=== PATIENT | female | born 1990 | race Hispanic/Latino ===

== ENCOUNTER 2024-06-14 11:04 | Emergency (ER) | payer OTHER ==
[~2024-06-14] VITALS: Ht 165.1 cm; Wt 55.2 kg
--- OUTSIDE RECORDS SUMMARY | 2024-06-14 11:12 | XMS ---
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 Current PHONE: Unknown Alejandra has no Care Guidelines for this patient. Boris VISIT COUNT (12 MO.) 2 EBENEZER [facility] TOTAL 2 NOTE: Visits indicate total known visits. ED/UCC VISIT TRACKING (12 MO.) 06/14/2024 11:05 [facility] [place] TYPE: Emergency COMPLAINT: - COUGH 04/01/2024 11:45 [facility] [place] TYPE: Emergency COMPLAINT: - ABDOMINAL PAIN INPATIENT VISIT TRACKING (12 MO.) No inpatient visits to display in this time frame [id number]
[2024-06-14] MEDS ORDERED: OMEPRAZOLE40 MG PO (12:10)
[2024-06-14] MEDS ORDERED: LEVOTHYROXINE137 MCG PO (12:10)
[2024-06-14] MEDS ORDERED: ZITHROMAX250 MG PO (14:27)
[2024-06-14] MEDS ORDERED: AZITHROMYCIN 250 MG TAB PO ONE (14:30)
[2024-06-14 14:46] VITALS: BP 105/67
== END 2024-06-14 14:52 | disposition home or self-care (01) ==
LOC: ED 11:04
DX: J18.9 Pneumonia, unspecified organism (principal)
CPT/HCPCS: 71045; 99283-25

== ENCOUNTER 2024-06-25 09:40 | Emergency (ER) | payer OTHER ==
[~2024-06-25] VITALS: Ht 165.1 cm; Wt 52.9 kg
[~2024-06-25 09:40] MED LIST: LEVOTHYROXINE137 MCG PO; OMEPRAZOLE40 MG PO; ZITHROMAX250 MG PO
--- OUTSIDE RECORDS SUMMARY | 2024-06-25 09:46 | XMS ---
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 Boris VISIT COUNT (12 MO.) 3 EBENEZER Chun TOTAL 3 NOTE: Visits indicate total known visits. ED/UCC VISIT TRACKING (12 MO.) 06/25/2024 09:40 [facility] [place] TYPE: Emergency COMPLAINT: - COUGH 06/14/2024 11:05 [facility] [place] TYPE: Emergency COMPLAINT: - COUGH DIAGNOSES: - Cough, unspecified - Pneumonia, unspecified organism 04/01/2024 11:45 [facility] [place] TYPE: Emergency COMPLAINT: - ABDOMINAL PAIN INPATIENT VISIT TRACKING (12 MO.) No inpatient visits to display in this time frame [id number]
[2024-06-25] MEDS ORDERED: ALBUTEROL/IPRATROPIUM 3 ML NEB INH ONE (10:15)
[2024-06-25] MEDS ORDERED: INHALER, ASSIST DEVICES 1 EACH SPACER MISC ONE (11:15)
[2024-06-25] MEDS ORDERED: ALBUTEROL SULFATE 8 GM HOME.PACK INH ONE (11:15)
[2024-06-25 11:31] VITALS: BP 101/73
== END 2024-06-25 11:31 | disposition home or self-care (01) ==
LOC: ED 09:40
DX: J98.01 Acute bronchospasm (principal); E03.9 Hypothyroidism, unspecified
CPT/HCPCS: 71045; 94640; 94664; 99285-25

== ENCOUNTER 2024-07-01 16:22 | Inpatient (IN) | payer OTHER ==
[~2024-07-01] VITALS: Ht 165.1 cm; Wt 50.1 kg
[~2024-07-01 16:22] MED LIST changes: +AZITHROMYCIN250 MG PO
--- OUTSIDE RECORDS SUMMARY | 2024-07-01 16:29 | XMS ---
PreManage Notification: MANDO RICHARDS Security Maintenance Chief Events No recent Security Events currently on file CRITERIA MET - Group Notification - [facility] - 2 Visits in 30 Days CARE PROVIDERS -[facility]ist: Groover Operator Current [place] PHONE: [phone] -Abe- Dentist: Groover Operator Current [facility] PHONE: [phone] [facility]/Center: Federally Qualified Health Current WORKERS CLINIC \[facility] ([facility]) <UNAVAIL> PHONE: [phone] SHARIF LIND [facility] Current PHONE: Unknown Alejandra has no Care Guidelines for this patient. Boris VISIT COUNT (12 MO.) 4 EBENEZER [facility] TOTAL 5 NOTE: Visits indicate total known visits. ED/UCC VISIT TRACKING (12 MO.) 07/01/2024 16:23 [facility] [place] TYPE: Emergency COMPLAINT: - MULT COMPLANTS 06/26/2024 07:11 [facility] [place] TYPE: Emergency DIAGNOSES: - Other chest pain - Pneumonia, unspecified organism - CHEST PAIN DUE TO COUGH 06/25/2024 09:40 [facility] [place] TYPE: Emergency COMPLAINT: - COUGH DIAGNOSES: - Acute bronchospasm - Hypothyroidism, unspecified - Shortness of breath 06/14/2024 11:05 [facility] [place] TYPE: Emergency COMPLAINT: - COUGH DIAGNOSES: - Cough, unspecified - Pneumonia, unspecified organism 04/01/2024 11:45 [facility] [place] TYPE: Emergency COMPLAINT: - ABDOMINAL PAIN INPATIENT VISIT TRACKING (12 MO.) No inpatient visits to display in this time frame [id number]
[2024-07-01] MEDS ORDERED: ALBUTEROL/IPRATROPIUM 3 ML NEB INH PRN (16:45)
[2024-07-01 16:59] LABS: BASOPHILS 0.7 % (0-2); EOSINOPHILS 0.3 % (0-6); HEMOGLOBIN 12.1 g/dL (12.0-18.0); MCHC 33.4 g/dl (30-36); MCV 80.7 fl (81-99); MONOCYTES 5.5 % (0-12); NEUTROPHILS 81.5 % (39-80); PLATELET COUNT 289 K/uL (140-440); RBC 4.47 M/ul (4.3-5.7); RDW 17.8 (10.5-15.0)
[2024-07-01] MEDS ORDERED: DOXYCYCLINE HY100 M3 PO (17:11)
[2024-07-01] MEDS ORDERED: AZITHROMYCIN250 MG (17:11)
[2024-07-01] MEDS ORDERED: DOXYCYCLINE HY100 MG PO (17:12)
[2024-07-01] MEDS ORDERED: ZITHROMAX250 MG PO (17:12)
[2024-07-01 17:19] LABS: ALBUMIN 3.5 g/dL (3.4-5.0); ALBUMIN/GLOBULIN RATIO 0.69 (1.1-2.4); ANION GAP 19.7 (7-21); BILIRUBIN, TOTAL 0.5 mg/dL (0.2-1.0); BUN/CREATININE RATIO 23.72 (6.0-28.6); CALCIUM 9.3 mg/dL (8.5-10.1); CREATININE, SERUM 0.59 mg/dL (0.55-1.02); MAGNESIUM 1.9 mg/dL (1.8-2.4); POTASSIUM 3.7 mmol/L (3.5-5.1); PROTEIN, TOTAL 8.6 g/dL (6.4-8.2)
[2024-07-01 17:21] LABS: LACTIC ACID, BLOOD 1.2 mmol/L (0.4-2.0)
[2024-07-01] MEDS ORDERED: SODIUM CHLORIDE 0.9% 1,000 ML IV PRN (20:15)
[2024-07-01] MEDS ORDERED: AZITHROMYCIN 500 MG in DEXTROSE 5% 250 ML IV ONE (20:15)
[2024-07-01] MEDS ORDERED: CEFTRIAXONE SODIUM 2 GM in SODIUM CHLORIDE 0.9% 100 ML IV ONE (20:15)
[2024-07-01] MEDS ORDERED: ondansetron HCL 4 MG/2 ML VIAL IV PRN (20:30)
[2024-07-01] MEDS ORDERED: ACETAMINOPHEN 325 MG TAB PO PRN (20:30)
[2024-07-01] MEDS ORDERED: SODIUM CHLORIDE 0.9% 1,000 ML IV SCH (20:30)
[2024-07-01] MEDS ORDERED: CEFTRIAXONE SODIUM 2 GM VIAL ONE (20:34)
[2024-07-01] MEDS ORDERED: MELATONIN 3 MG TAB PO PRN (21:00)
[2024-07-01 21:41] VITALS: BP 106/48
--- NOTE | 2024-07-01 21:47 | EKG ---
[facility] [address] [place] [address] Signed Normal sinus rhythm with sinus arrhythmia Normal ECG No previous ECGs available Confirmed by Diamond Angelo MD () on 07/01/2024 9:47:47 PM Electronically Signed By: DIAMOND ANGELO MD 07/01/247 PATIENT NAME: MANDO RICHARDS Electrocardiogram DATE OF : [birth year] PHYSICIAN: DIAMOND ANGELO MD REPORT #: [id number] REPORT IS CONFIDENTIAL AND NOT TO BE RELEASED WITHOUT AUTHORIZATION
--- NOTE | 2024-07-01 21:50 | NUR ---
RECEIVED REPORT, PT ON MED SURG FLOOR WITH FAMILY. INITIAL ASSESSMENT. PT REPORTS PAIN AT IV SITE, NOTED MILD SWELLING. DISCONNECTED INFUSING AZITHROMYCIN AND MARKED AREA OF SWELLING. ICE APPLIED AND ARM ELEVATED. NEW IV PLACED IN R FOREARM AND RESTARTED IV. ORIENTED TO PLAN OF CARE AND SAFETY. PT AGREES WITH PLAN. GIVEN BEDDING TO WHO PLANS TO STAY AT BEDSIDE OVERNIGHT. CALL LIGHT IN REACH
[2024-07-01] MEDS ORDERED: guaiFENesin 600 MG TABCR PO PRN (22:00)
[2024-07-01] MEDS ORDERED: BENZONATATE 100 MG CAP PO PRN (22:00)
--- NOTE | 2024-07-01 22:11 | NUR ---
PT WAS BROUGHT DOWN TO [facility] SUR[facility] ROOM 116 AT 2135, ADMITTED FOR PNEUMONIA. SHE AMBULATED TO BATHROOM TO VOID 250 ML FARHAD URINE THEN GOT IN BED. IN BR O2 WAS UP TO 4L WITH 100% SPO2, DOWN TO 2L WHEN BACK IN BED. PT DOES REPORT FEELING LESS SOB THEN WHEN SHE FIRST GOT HERE. 4MG IV ZOFRAN GIVEN FOR SOME NAUSEA RELATED TO COUGHING AND TESSALON PERLES GIVEN FOR COUGH.
--- NOTE | 2024-07-01 23:27 | NUR ---
MILD PAIN NOTED AT NEWLY PLACED R IV SITE. IV FLUSHING WELL WITH NO SWELLING, GOOD BLOOD RETURN. GIVEN HEAT PACK TO DILATE VEINS WELL SLOWED INFUSING AZITHROMYCIN FROM 125ML/HR TO 100ML/HR. PAIN IMPROVED, BUT INSTRUCTED PT TO NOTIFY IF WORSENS. ATTATCHED TO TELEMONITOR #2. CALL LIGHT IN REACH
[2024-07-02] VITALS (10 sets, daily range): BP systolic 101–114; BP diastolic 48–63
--- NOTE | 2024-07-02 01:34 | NUR ---
PT ALERT ON PHONE IN BED. NO NEEDS AT THIS TIME, REPORTS IV SITE NOT PAINFUL OR SWOLLEN. CALL LGT IN REACH
--- NOTE | 2024-07-02 01:39 | NUR ---
UROLOGIST PHYSICIAN OBTAINED VITALS AND I&O. PT STATES NO NEEDS AT THIS TIME. CALL LIGHT WITHIN REACH.
--- NOTE | 2024-07-02 03:43 | NUR ---
PT AWAKE, ALERT IN BED SCROLLING ON PHONE. DENIES PRESENT NEEDS, CALL LIGHT IN REACH
--- NOTE | 2024-07-02 04:08 | NUR ---
PT CALLED, UP TO BATHROOM, ASSISTING. CCU CALLED, HR UP TO 140'S WHILE UP. BACK TO BED, HR LOW 100'S. NONPRODUCTIVE COUGH WHILE WALKING.
--- NOTE | 2024-07-02 04:10 | NUR ---
SURGICAL SERVICES TECH OBTAINED VITALS AND I&O. PT STATES NO FURTHER NEEDS AT THIS TIME. CALL LIGHT WITHIN REACH.
--- NOTE | 2024-07-02 04:38 | NUR ---
ASSESSMENT, GIVEN PRN MUCINEX. PT CALL LIGHT IN REACH, NO OTHER NEEDS
--- NOTE | 2024-07-02 05:31 | NUR ---
PT ARRIVED FROM ED WITH WORSENED SOB. A&OX4, VITALS WNL ON 2LNC. ON TELEMONITOR #2 D/T ELEVATED TROPONIN. PT UP THROUGHOUT NIGHT D/T COUGH. HAD RECEIVED TESSALON CROW, AND LATER MUCINEX ON SHIFT TO MILD EFFECT. L IV INFILTRATED WHILE RUNNING AZITHROMYCIN IV PIGGYBACK. AFFECTED AREA MARKED, ARM ELEVATED AND ICE APPLIED. LATER IN SHIFT, SWELLING HAS IMPROVED, INSTRUCTED TO KEEP ARM ELEVATED. NEW IV ON R FOREARM. SBA FOR LINE MANAGEMENT. UP TO BATHROOM ONCE. SUPPORTIVE AT BEDSIDE, CALL LIGHT IN REACH
[2024-07-02 05:33] LABS: BASOPHILS 0.7 % (0-2); EOSINOPHILS 1.3 % (0-6); HEMATOCRIT 29.1 % (35.0-50.0); HEMOGLOBIN 9.9 g/dL (12.0-18.0); LYMPHOCYTES 20.8 % (24-44); MCH 27.4 (27-36); MCV 80.7 fl (81-99); MONOCYTES 7.6 % (0-12); NEUTROPHILS 69.6 % (39-80); PLATELET COUNT 225 K/uL (140-440); RDW 17.4 (10.5-15.0)
[2024-07-02 05:53] LABS: ALBUMIN 2.6 g/dL (3.4-5.0); ALBUMIN/GLOBULIN RATIO 0.65 (1.1-2.4); ANION GAP 13.6 (7-21); BILIRUBIN, TOTAL 0.4 mg/dL (0.2-1.0); BUN/CREATININE RATIO 19.04 (6.0-28.6); CALCIUM 8.3 mg/dL (8.5-10.1); CREATININE, SERUM 0.42 mg/dL (0.55-1.02); MAGNESIUM 1.6 mg/dL (1.8-2.4); PHOSPHORUS, INORGANIC 3.9 mg/dL (2.5-4.9); POTASSIUM 3.6 mmol/L (3.5-5.1); PROTEIN, TOTAL 6.6 g/dL (6.4-8.2)
[2024-07-02] MEDS ORDERED: LEVOTHYROXINE SODIUM 137 MCG TAB PO SCH (06:00)
--- NOTE | 2024-07-02 07:28 | NUR ---
PT RESTING IN BED. PT PROVIDED WATER AND APPLE JUICE PER PT REQUEST. DIETARY CALLED FOR MEAL ORDER PER PT REQUEST. PT DECLINES GETTING UP TO CHAIR AT THIS TIME. PT DECLINES WARM WASH RAG. BED IN LOWEST POSITION. CALL LIGHT IN REACH.
--- NOTE | 2024-07-02 08:33 | NUR ---
Patient has a notable cough, tessalon perles 100mg po admin at this time. IV patent, fluids infusing per order. Patient reports she tolerated breakfast well this morning. Patient's at bedside. Call light within reach.
--- NOTE | 2024-07-02 08:58 | NUR ---
PT SITTING UP IN BED EATING BREAKFAST. AT BEDSIDE. PT WANTING TO ORDER MEAL FOR . PT NOTIFIED THAT WOULD NEED TO UTILIZE CAFETERIA . PT OFFERED MEAL TICKET FOR BUT DECLINES AT THIS TIME. PT DECLINES FURTHER NEEDS AT THIS TIME. CALL LIGHT IN REACH.
[2024-07-02] MEDS ORDERED: MAGNESIUM SULFATE 2 GM/50 ML BAG IV SCH (09:00)
[2024-07-02] MEDS ORDERED: ENOXAPARIN SODIUM 40 MG/0.4 ML SYR SUB-Q SCH (09:00)
--- NOTE | 2024-07-02 09:29 | NUR ---
PT RESTING IN BED. VITALS AND I'S AND O'S COMPLETE. PT DECLINES RESTROOM NEEDS AT THIS TIME. PT DECLINES SHOWER AT THIS TIME AT STATES "MAYBE LATER TODAY". PT REQ MEAL TRAY STAY IN RM AT THIS TIME. AT BEDSIDE. PT DECLINES GETTING UP TO CHAIR AT THIS TIME. BED IN LOWEST POSITION, CALL LIGHT IN REACH.
--- NOTE | 2024-07-02 10:30 | NUR ---
INTO SEE PATIENT. PERSONAL HEALTH INFORMATION REVIEWED. PATIENT LIVES IN A [place]IL[place]. PATIENT HAS 2 STEPS TO GET INTO AND STATES THEY HAVE BEEN HARDER BECAUSE OF HER SHORTNESS OF BREATH. PATIENT LIVES WITH AND THREE KIDS. PATIENT DRIVES. STATES THAT HER BILLS HAVE BEEN TIGHTER SINCE SHE IS UNABLE TO WORK. GAVE HER INFORMATION ON [employer] AND [employer]OD [employer]. PATIENT STATES SHE GETS FOOD STAMPS. NO DME AT HOME. SHE DENIES ANY NEEDS FROM CM AT THIS TIME.
--- NOTE | 2024-07-02 10:43 | NUR ---
pt eating meal with . pt denies any needs at this time. call light in reach
[2024-07-02] MEDS ORDERED: VENTOLIN HFA18 GM INH (11:17)
--- NOTE | 2024-07-02 11:38 | NUR ---
VISITED DURING SPIRITUAL CARE ROUNDS. PT SITTING IN CHAIR, SUPPORTED BY COMMERCIAL ASSISTANT ON COUCH. PT APPEARED TO BE IN OVERALL GOOD SPIRITS DESPITE ONGOING HEALTH CHALLENGES, TALKED OF THOSE CHALLENGES AND ONGOING WEIGHT LOSS, HOPE OF CHRISTIANITY OF HEALTH. TRAFFIC CONTROL SUPERVISOR PROVIDED SUPPORTIVE PRESENCE, HOSPITALITY, PRAYER. PT EXPRESSED GRATITUDE, HOPE.
[2024-07-02] MEDS ORDERED: PHARMACY RENAL DOSE ADJUSTMENT 1 DOSE MISC PO SCH (12:00)
--- NOTE | 2024-07-02 12:01 | NUR ---
UR CLINICAL REVIEW: DALE, MEETS INPT FOR PNEUMONIA OXYGEN REQUIRED, IV ANTIBIOTICS, IV FLUIDS [facility] INPT 07/01/2024 @ 2031 ORDER MATCHES REG AUTH PENDING, WILL SEND CLINICALS FOR REVIEW PLAN TO DC TO HOME WHEN MEDICALLY STABLE 07/04/2024
--- NOTE | 2024-07-02 12:22 | NUR ---
pt up in chair eating lunch. IV pump alarming. RN notified. pt denies any needs at this time. call light in reach.
--- NOTE | 2024-07-02 13:05 | NUR ---
PT SITTING UP IN CHAIR EATING MEAL. VITALS AND IS AND OS COMPLETE. RN IN ROOM AND AWARE OF BP. PT DENIES ANY NEEDS AT THIS TIME. CALL LIGHT IN REACH.
--- NOTE | 2024-07-02 13:14 | NUR ---
Patient sitting up in chair, alert and oriented x4. Patient reports she continues to be a bit short of breath, increasing with exertion per pt. Patient is on 2L oxygen per nc, sp02 95% per cpox.
--- NOTE | 2024-07-02 16:03 | NUR ---
pt resting in chair watching tv. pt denies any needs at this time. call light in reach
--- NOTE | 2024-07-02 16:09 | NUR ---
MED REC COMPLETE
--- NOTE | 2024-07-02 16:16 | NUR ---
GINO from Dr. Taveras to order HIV test and quant-gold tb lab. Orders placed at this time. Patient placed on airborb precautions.
--- NOTE | 2024-07-02 16:33 | NUR ---
Quant gold-tb test added by lab as I am unable to locate under orders. Per lab, order is in place and scheduled for tomorrow morning as it is time sensitive.
--- NOTE | 2024-07-02 17:11 | NUR ---
PATIENT WAS IN HER CHAIR AT THIS TIME, SHE WANTED TO TAKE A SHOWER. TREATING PLANT PUMPER GOT HER EVERYTHING FOR A SHOWER SET UP, WRAPPER HER IV AND TOLD HER TO CALL WHEN SHE IS DONE.
[2024-07-02] MEDS ORDERED: AZITHROMYCIN 500 MG VIAL ONE (17:23)
[2024-07-02] MEDS ORDERED: CEFTRIAXONE SODIUM 2 GM VIAL ONE (17:24)
--- NOTE | 2024-07-02 17:44 | NUR ---
PT UP IN THE CHAIR. FAMILY PRESENT IN ROOM. RENA HENDERSON PRESENT IN ROOM. VITALS AND I'S AND O'S COMPLETE. PT DENIES ANY NEEDS AT THIS TIME. CALL LIGHT IN REACH
[2024-07-02] MEDS ORDERED: AZITHROMYCIN 500 MG in DEXTROSE 5% 250 ML IV SCH (18:00)
[2024-07-02] MEDS ORDERED: CEFTRIAXONE SODIUM 2 GM in SODIUM CHLORIDE 0.9% 100 ML IV SCH (18:00)
--- NOTE | 2024-07-02 19:20 | NUR ---
RECEIVED REPORT. PT RESTING IN BED WITH FAMILY IN ROOM. NO NEEDS PRESENTLY, THOUGH EXPRESSES SHE WOULD LIKE COUGH MEDICINE BEFORE BED. CALL LIGHT IN REACH
--- NOTE | 2024-07-02 21:05 | NUR ---
ASSESSMENT, EVENING MEDS. PT REQUESTS TESSALON FOR COUGH. BREATHING MILDLY LABORED, ESPECIALLY OOB TO BATHROOM. ON 2LNC. SMALL BLOOT CLOT NOTED IN URINE. CALL LIGHT IN REACH
--- NOTE | 2024-07-02 22:21 | NUR ---
PT FAMILY LEFT FOR NIGHT, SUPPORTIVE IN ROOM. NO NEEDS AT THIS TIME, CALL LIGHT IN REACH
[2024-07-03] VITALS (11 sets, daily range): BP systolic 105–146; BP diastolic 61–78
--- NOTE | 2024-07-03 00:42 | NUR ---
PT ALERT IN BED, DENIES ANY NEEDS CURRENTLY. CALL LIGHT IN REACH
--- NOTE | 2024-07-03 01:40 | NUR ---
RESPONDED TO BEEPING IV, REPLACED NS BAG. VITALS. PT C/O BODY ACHES AND SORENESS OF BACK WELL FEELING "FEVERISH", NO INCREASED TEMP NOTED. GIVEN PO TYLENOL WELL MELATONIN FOR INSOMNIA. PT DECLINES OFFER FOR ICE/HEAT PACK CURRENTLY. PT WITH SMALL BLOOD CLOT NOTED IN HAT AFTER URINATING. PT DENIES BEIGN ON MENSES. DENIES PAIN OR BURNING, NO VASQUEZ BLEEDING OR PINK-TINGED URINE. NOTIFIED MEETING MANAGER. CALL LIGHT IN REACH
--- NOTE | 2024-07-03 04:02 | NUR ---
PT RESTING IN BED WITH EYES CLOSED, RISE AND FALL OF CHEST NOTED. CALL LIGHT IN REACH
[2024-07-03 05:27] LABS: BASOPHILS 0.3 % (0-2); EOSINOPHILS 1.7 % (0-6); HEMATOCRIT 28.9 % (35.0-50.0); HEMOGLOBIN 9.6 g/dL (12.0-18.0); LYMPHOCYTES 15.9 % (24-44); MCHC 33.3 g/dl (30-36); MONOCYTES 6.6 % (0-12); NEUTROPHILS 75.5 % (39-80); PLATELET COUNT 225 K/uL (140-440); RBC 3.56 M/ul (4.3-5.7); RDW 17.3 (10.5-15.0)
--- NOTE | 2024-07-03 05:49 | NUR ---
DATA ENTRY MACHINE OPERATOR OBTAINED VITALS AND I&O. PT STATES NO NEEDS AT THIS TIME. CALL LIGHT WITHIN REACH.
[2024-07-03 05:50] LABS: ALBUMIN 2.3 g/dL (3.4-5.0); ALBUMIN/GLOBULIN RATIO 0.62 (1.1-2.4); ANION GAP 10.9 (7-21); BILIRUBIN, TOTAL 0.4 mg/dL (0.2-1.0); BUN/CREATININE RATIO 11.9 (6.0-28.6); CALCIUM 8.3 mg/dL (8.5-10.1); CREATININE, SERUM 0.42 mg/dL (0.55-1.02); POTASSIUM 3.9 mmol/L (3.5-5.1)
--- NOTE | 2024-07-03 05:56 | NUR ---
MORNING MEDS AND ASSESSMENT. GIVEN GUIAFENASIN PER PT REQUEST. PT STATES SHE WAS ABLE TO SLEEP MORE TODAY THAN YESTERDAY AFTER MELATONIN. DENIES FURTHER REQUEST. [facility], SUPPORTIVE AT BEDSIDE
--- NOTE | 2024-07-03 06:08 | NUR ---
PT WITH FREQUENT DRY COUGH OVERNIGHT, WELL INCREASED O2 NEEDS (2L TO 3L OVERNIGHT). MILDLY IMPROVED WITH TESSALON CROW. ALSO C/O SORENESS OF BACK/BODY ACHES, IMPROVED WITH TYLENOL AND MELATONIN. SMALL BLOOD CLOT NOTED AFTER PT URINATED X1. URINE YELLOW, PT DENIES CURRENT MENSES OR PELVIC PAIN. SUPPORTIVE AT BEDSIDE OVERNIGHT. CALL LIGHT IN REACH
--- NOTE | 2024-07-03 06:38 | NUR ---
NOTIFIED OF SMALL BLOOD CLOT WITH URINATION. ORDERED UA. CLEAN HAT PLACED IN BATHROOM.
--- NOTE | 2024-07-03 07:55 | NUR ---
PT UP IN CHAIR. RESTING IN ROOM. PT PROVIDED WARM WASH RAG. PT DENIES BR NEEDS AT THIS TIME. PT C/O CHEST PAIN. RN NOTIFIED.
--- NOTE | 2024-07-03 07:58 | NUR ---
BACK IN ROOM. PT STILL UP IN CHAIR. ROOM CLEANED UP. BED LINEN CHANGE COMPLETE. PT FOOD PUT IN FRIDGE WITH PT STICKER. PT DENIES ANY NEEDS AT THIS TIME. PT ENCOURAGED TO AMBULATE LATER TODAY. CALL LIGHT IN REACH.
--- NOTE | 2024-07-03 08:56 | NUR ---
PT IN BED EATING MEAL. PT DENIES NEEDS. IN ROOM. CALL LIGHT IN REACH.
--- NOTE | 2024-07-03 09:03 | NUR ---
PER ROUNDS, MD REQUESTING DDIMER, ORDERS INPUT ORDERED. PRIMARY RN NOTIFIED.
--- NOTE | 2024-07-03 10:10 | NUR ---
PT SITTING AT EDGE OF BED EATING MEAL. PT AT BEDSIDE. PT ABLE TO VOID 350 ML OF URINE WHICH APPEARS TO HAVE BLOOD CLOTS. PT DENIES BEING ON MENSTREUAL PERIOD. RN NOTIFIED. URINE SENT TO LAB. VITALS AND IS AND OS COMPLETE. PT DENIES WARM BLANKET. PT ENCOURAGE TO DRINK MORE FLUIDS BUT STATES "ITS HARD". PT ENCOURAGRED TO WALK BUT STATES "NO NOT RIGHT NOW". PT ENCOURAGED TO WALK LATER AND SHE STATES "YA MAYBE LATER". PT DENIES ANY NEEDS AT THIS TIME. CALL LIGHT IN REACH.
[2024-07-03 10:17] LABS: BILIRUBIN, URINE NEGATIVE (negative); BLOOD/HGB, URINE LARGE (Negative); KETONE, URINE SMALL (Negative); LEUK ESTERASE, URINE NEGATIVE (negative); NITRITE, URINE NEGATIVE (negative)
[2024-07-03 10:23] LABS: BACTERIA, URINE NONE SEEN /hpf (negative); CASTS, URINE NONE SEEN \\lpf; COLLECTION TYPE, URINE CLEAN CATCH; CRYSTALS, URINE NONE SEEN (0-1+); EPITHELIAL CELLS, URINE SQUAMOUS 1+ /lpf (0-1+); RED BLOOD CELLS, URINE >50 /hpf (0-5)
[2024-07-03 10:24] LABS: REFLEX CULTURE, URINE No (No)
--- NOTE | 2024-07-03 11:21 | NUR ---
Patient reports she has been having upper back and chest area pain with deep breathing, started last night. Charge nurse Farida alerted Dr. Taveras this am in meeting. R/O PE imaging placed by Dr. Taveras. RT notified, she reports she will come evaluate patient for potential breathing treatments. Patient remains on tele monitor-NSR. Vital signs stable, sp02 93% on 2L oxygen per nc.
[2024-07-03] MEDS ORDERED: BUDESONIDE 0.5 MG/2 ML VIAL INH SCH (11:28)
[2024-07-03] MEDS ORDERED: ALBUTEROL/IPRATROPIUM 3 ML NEB INH PRN (11:30)
[2024-07-03] MEDS ORDERED: predniSONE 20 MG TAB PO SCH (11:55)
[2024-07-03] MEDS ORDERED: VANCOMYCIN PER PHARMACY PROTOCOL IV SCH (11:56)
[2024-07-03] MEDS ORDERED: LINEZOLID 600 MG BAG IV SCH (13:00)
[2024-07-03] MEDS ORDERED: PIPERACILLIN/TAZOBACTAM 3.375 GM VIAL ONE ×2 (13:02→21:16)
--- NOTE | 2024-07-03 13:46 | NUR ---
Patient assited to restroom, pt voided 400ml of yellow urine with a few small blood clots noted. Patient reports increased shortness of breath with exertion, she desated to 84% on 2l oxygen per nc while up to restroom. Oxygen increased to 3L while patient recovered then back to 2L-sp02 92%.
[2024-07-03] MEDS ORDERED: PIPERACILLIN/TAZOBACTAM 3.375 GM in SODIUM CHLORIDE 0.9% 100 ML IV SCH (14:00)
--- NOTE | 2024-07-03 14:40 | NUR ---
Patient requesting tylenol for rib, chest, back pain. Admin tylenol 650mg po at this time. SO02 91% on 2L per nc.
[2024-07-03] MEDS ORDERED: DIATRIZOATE MEGLU/DIATRIZO SOD 15 ML BTL PO ONE (15:15)
--- NOTE | 2024-07-03 15:46 | NUR ---
JONATHAN from Dr. Taveras to start dilaudid 0.5mg iv every hour as needed for pain.
[2024-07-03] MEDS ORDERED: HYDROmorphone HCL 1 MG/ML SYR IV PRN (16:00)
--- NOTE | 2024-07-03 16:14 | NUR ---
PT WAS OFFERED PAIN MEDS, PT STATES SHE IS 0/10, SHE GOT SOME TYLENOL EARLIER AND IT HELPED. INFORMED SHE WILL BE LEAVING THE UNIT FOR CT SCAN, OFFERED AGAIN BECAUSE WITH MOVEMENT SHE MAY HAVE INCREASED PAIN, PT DECLINED. PT IS ALSO IN THE ROOM WITH HER UNDERAGE DAUGHTER, LEFT THE HOSPITAL. SHE WAS WANTING HER YOUNG DAUGHTER TO GO WITH HER TO SCAN, INFORMED THAT UNFORTUNATELY MAY BE BETTER FOR HER TO STAY IN ROOM HER MAY BE BACK BEFORE THE SCAN. ALSO EDUCATED PATIENT THAT UNDERAGE CHILDREN NEED TO BE HERE WITH ANOTHER PARENT/ADULT AND MAY NOT BE LEFT WITH HER IN THE ROOM UNATTENDED IN THE FUTURE. FOR THE PATIENT SAFETY AND FOR THE CB SAFETY INCASE SOMETHING SHOULD HAPPEN. SHE VERBALIZED AN UNDERSTANDING. THIS RN NOTIFIED AND UPDATED THE PRIMARY RN OF THE INTERACTION/EDUCATION.
--- NOTE | 2024-07-03 16:57 | NUR ---
Patient back from CT scan. Oxygen decreased to 2L, sp02 93% at this time. IV fluids restarted.
--- NOTE | 2024-07-03 17:12 | NUR ---
Patient desated to 88% on 2L oxygen. Patient's oxygen increased back to 4L -sp02 now 91%.
--- NOTE | 2024-07-03 17:15 | NUR ---
in room to attach telemetry cpox. pt sitting at edge of bed eating dinner with family. pt denies further needs. call light in reach
--- NOTE | 2024-07-03 18:44 | NUR ---
Patient up to restroom, oxygen decreased to 82% on 4L 02 per nc. Oxygen increased to 6L while pt up, sp02 increased to 90% after approx one min of resting post bathroom trip. Patient reports increasing sob with activity. Patient instructed to start using commode moving forward and to call for assistance with any needs.
--- NOTE | 2024-07-03 18:56 | NUR ---
MD NOTIFIED OF CT RESULTS THIS EVENING, WORM PACKER WAS WONDERING MD WANTED PASTORAL CARE TO COME AND DISCUSS RESULTS WITH PATIENT. MD DEFERS AT THIS TIME, AWAITING MRI, WHICH AT THIS TIME WILL NOT BE COMPLETED UNTIL FRIDAY. WORM PACKER WILL REACH OUT AGAIN TO MRI TOMORROW TO SEE IF ANYONE IS AVAILABLE. PRIMARY RN UPDATED ON THE SITUATION. NO NEW ORDERS AT THIS TIME.
--- NOTE | 2024-07-03 19:40 | NUR ---
RECEIVED REPORT. PT IN ROOM WITH SUPPORTIVE FAMILY AT BEDSIDE. NO NEEDS PRESENTLY, CALL LIGHT IN REACH
--- NOTE | 2024-07-03 21:45 | NUR ---
ASSESSMENT, VITALS, EVENING MEDS. GIVEN PRN TYLENOL, BENAZOATE, AND MELATONIN FOR SLEEP TONIGHT. PT EXPRESSES WORRY ABOUT CT RESULTS AND DISEASE PROCESS. SHE STATES SHE HOPES THAT THE MRI TOMORROW WILL GIVE HER AN ANSWER ONE WAY OR ANOTHER. WHEN ASKED ABOUT HOW SHE IS COPING, PT RESPONDS SHE IS TAKING IT "DAY BY DAY." GIVEN COFFEE TO PT AND AT BEDSIDE. CALL LIGHT IN REACH
[2024-07-03] MEDS ORDERED: ALBUTEROL SULFATE 0.083% 3 ML VIAL INH PRN (22:30)
--- NOTE | 2024-07-03 23:11 | NUR ---
RESPONDED TO BEEPING IV, IV LINEZOLID COMPLETE. PT ALERT ON PHONE, REPORTS NO NEEDS PRESENTLY. CALL LIGHT IN REACH
[2024-07-04] VITALS (11 sets, daily range): BP systolic 94–108; BP diastolic 55–66
--- NOTE | 2024-07-04 01:03 | NUR ---
PT RESTING, RISE AND FALL OF CHEST OBSERVED, WITH CALL LIGHT IN REACH
--- NOTE | 2024-07-04 02:51 | NUR ---
PT IN BED WITH EYES CLOSED, SPO2 94%. [facility]
--- NOTE | 2024-07-04 04:23 | NUR ---
CALL FROM CCU: PT DESAT TO 70S AND HR TO 130S. IN ROOM, PT SITTING ON EDGE OF BED, HAD JUST RETURNED FROM WALKING TO THE BATHROOM WITH HER . DECLINES SOB. TITRATED O2 TO 6LNC, AND SP02 GRADUALLY INCREASED WITH REST. PT ABLE TO TALK IN FULL SENTENCES, THOUGH WINDED. HR IN 90S WHILE ON EDGE OF BED. OTHER VITALS STABLE. PT IN BED AND TITRATED BACK DOWN TO 4LNC. DECLINES OTHER NEEDS FOR NOW. INSTRUCTED TO CALL BEFORE GOING TO BATHROOM TO PRE-OXYGENATE, PT AGREES WITH PLAN. CALL LIGHT IN REACH
[2024-07-04 05:22] LABS: BASOPHILS 0.3 % (0-2); EOSINOPHILS 0.1 % (0-6); HEMATOCRIT 27.2 % (35.0-50.0); HEMOGLOBIN 8.9 g/dL (12.0-18.0); LYMPHOCYTES 6.4 % (24-44); MCH 26.5 (27-36); MCHC 32.9 g/dl (30-36); MCV 80.4 fl (81-99); MONOCYTES 5.6 % (0-12); NEUTROPHILS 87.6 % (39-80); PLATELET COUNT 222 K/uL (140-440); RBC 3.38 M/ul (4.3-5.7); RDW 17.3 (10.5-15.0)
[2024-07-04 05:41] LABS: ALBUMIN 2.3 g/dL (3.4-5.0); ALBUMIN/GLOBULIN RATIO 0.61 (1.1-2.4); ANION GAP 10.9 (7-21); BILIRUBIN, TOTAL 0.4 mg/dL (0.2-1.0); BUN/CREATININE RATIO 6.66 (6.0-28.6); CALCIUM 8.7 mg/dL (8.5-10.1); CREATININE, SERUM 0.45 mg/dL (0.55-1.02); POTASSIUM 3.9 mmol/L (3.5-5.1); PROTEIN, TOTAL 6.1 g/dL (6.4-8.2)
[2024-07-04] MEDS ORDERED: PIPERACILLIN/TAZOBACTAM 3.375 GM VIAL ONE ×3 (05:44→22:00)
--- NOTE | 2024-07-04 06:17 | NUR ---
VITALS, AM MEDICATIONS. GIVEN PO TYLENOL AND HEAT PACK FOR BACK PAIN. PT ALERT, SCROLLING ON PHONE, CALL LIGHT IN REACH
--- NOTE | 2024-07-04 07:52 | NUR ---
PT RESTING QUIET ALERT AT TIME OF SHIFT REPORT, FAMILY PRESENT IN THE ROOM. FRESH H20 TO BEDSIDE PT DENIES OTHER NEEDS
[2024-07-04] MEDS ORDERED: ALBUTEROL/IPRATROPIUM 3 ML NEB INH SCH (08:00)
[2024-07-04 08:49] LABS: HIV 1,2 COMBO ANTIGEN/ANTIBODY Negative (Negative)
--- NOTE | 2024-07-04 11:11 | NUR ---
MET WITH R/T AND DR LEMONS TO COORDINATE PT CARE DISCUSSED INCREASED 02 NEEDS, SOB, AND TEST RESULTS. PREDNISONE DC'D AT THAT TIME. PT HAS AGAIN INCREASED NEED FOR 02. DIAGNOSTICS ORDERED R/T CONTINUE FREQUENT CHECKS VESTA YUN
[2024-07-04] MEDS ORDERED: FUROSEMIDE 40 MG/4 ML VIAL IV ONE (11:30)
--- NOTE | 2024-07-04 11:54 | NUR ---
PT SITTING UP IN BED WATCHING TV, VISITOR PRESENT. PT IS ALERT AND COOPERATIVE, UPBEAT, SPEAKING FREELY. SATS 96% AT THIS TIME. PT AGREES DILAUDID RESOLVED HER EPIGASTRIC PAIN.
--- NOTE | 2024-07-04 14:34 | NUR ---
PT TO C/T WEARING NONREBREATHER AT 15 LPM SATS MAINTAINED WITH TOILET ACTIVITY AND TRANSFER TO W/C
--- NOTE | 2024-07-04 14:50 | NUR ---
PT BACK FROM C/T RETURNS TO BED HIGHFLOW 02 REPLACED. SATS DIP TO 80s WITH TRANSFER, RECOVERS QUICKLY. FRESH H20 AND JELLO PROVIDED PER REQUEST DENIES OTHER NEEDS
--- NOTE | 2024-07-04 16:10 | NUR ---
PT HAS VOIDED A LARGE AMOUNT OF FLUID 02 SATS HAVE INCREASED R/T IN TO SEE HER TURNS TO 40% SATS REMAIN HIGH 90'S. PT C/O PAIN WHEN SL FLUSHED NEW SITE ESTABLISHED
--- NOTE | 2024-07-04 17:16 | NUR ---
PT SITTING UP IN THE BED FAMILY X4 PRESENT. SATS HAVE RECOVERED FROM ACTIVITY 94% ON 30 L. PT ENCOURAGED TO CONTINUE USING I/S SHE STATES THAT SHE DOES USE IT EVERY LITTLE BIT. PT DENIES PAIN ASSOCIATED WITH I/S OR DEEP BREATHING. SPOKE WITH PT ABOUT FILLING HER LUNGS AND BREATHING DEEPLY OPPOSED TO SMALL BREATHS PER DOCTORS REQUEST, PT AGREES AND WILL NOTIFY RN OF ANY DISCOMFORT OR INABLILTY TO DO THIS
--- NOTE | 2024-07-04 19:57 | NUR ---
RECEIVED REPORT. PT RESTING IN BED WITH SUPPORTIVE AND KIDS AT BEDSIDE. GIVEN WATER AND SNACKS REQUESTED. MD ENTERED ROOM TO DISCUSS DIAGNOSIS, PT REQUESTS AN PUBLIC EMPLOYMENT MEDIATOR FOR HER AND TO DISCUSS OUTSIDE THE ROOM. VIRTUAL PUBLIC EMPLOYMENT MEDIATOR LOCATED. PT RESTING IN BED, CALL LIGHT IN REACH
--- NOTE | 2024-07-04 20:26 | NUR ---
ASSESSMENT, VITALS. PT REPORTS THROAT FEELING DRY, LIKELY FROM THE OXYGEN. DENIES PAIN AT PRESENT. GIVEN WARM WATER. SUPPORTIVE FAMILY AT BEDSIDE, CALL LIGHT INREACH
--- NOTE | 2024-07-04 22:16 | NUR ---
ASSESSMENT, EVENING MEDS. PT WITH SUPPORTIVE FAMILY AT BEDSIDE. NO OTHER NEEDS AT THIS TIME, CALL LIGHT IN REACH
[2024-07-04 22:30] LABS: COCCIDIOIDES AB,IGG ELISA 0.6 IV (<=0.9); COCCIDIOIDES AB,IGM ELISA 0.4 IV (<=0.9)
--- NOTE | 2024-07-04 23:15 | NUR ---
RESPONDED TO TELEMONITOR READING HR 130S, SPO2 IN 70S. PT ON COMMONDE WHEN ENTERED ROOM. ELEVATED VAPOTHERM TO DELIVER 50% OXYGEN WHILE UP OUT OF BED, WITH PT HR NAD SPO2 IMPROVING. REMINDED PT TO CALL WHEN NEEDING TO GET OUT OF BED. PT DECLINES PUREWICK PRESENTLY. PT AGREES WITH PLAN. PT REQUESTS DILAUDID FOR PAIN OF CHEST WITH COUGH. GIVEN 2MG IV DILAUDID TO GOOD EFFECT. CALL LIGHT IN REACH
[2024-07-05] VITALS (9 sets, daily range): BP systolic 95–110; BP diastolic 57–71
[2024-07-05 00:03] LABS: QUANTIFERON MITOGEN MINUS NIL 9.95 IU/mL (()); QUANTIFERON NIL 0.05 IU/mL (()); QUANTIFERON PLUS TB2 MINUS NIL 0.01 IU/mL (<=0.34); QUANTIFERON TB GOLD PLUS Negative (Negative)
[2024-07-05 00:10] LABS: INFLUENZA B NAA NEGATIVE (NEGATIVE); RESPIRATORY SYNCYTIAL VIR NAA NEGATIVE (NEGATIVE)
--- NOTE | 2024-07-05 01:05 | NUR ---
VITALS, CHANGED TELEMONITOR BATTERY. PT ASLEEP, BUT EASILY RAOUSABLE. DENIES NEEDS CURRENTLY, CALL LIGHT IN REACH
--- NOTE | 2024-07-05 02:54 | NUR ---
RESPONDED TO BEEPING IV, DISCONNECTED IV ABX. PT SLEEPY BUT ALERT, NO NEEDS AT THIS TIME. CALL LIGHT IN REACH
--- NOTE | 2024-07-05 04:29 | NUR ---
PT ALERT WATCHING TV. NO NEEDS AT THIS TIME. CALL LIGHT IN REACH
[2024-07-05] MEDS ORDERED: PIPERACILLIN/TAZOBACTAM 3.375 GM VIAL ONE (05:04)
[2024-07-05 05:24] LABS: BASOPHILS 0.4 % (0-2); EOSINOPHILS 0.2 % (0-6); HEMATOCRIT 27.8 % (35.0-50.0); HEMOGLOBIN 9.5 g/dL (12.0-18.0); LYMPHOCYTES 8.6 % (24-44); MCH 27.1 (27-36); MCHC 34.1 g/dl (30-36); MCV 79.3 fl (81-99); MONOCYTES 4.7 % (0-12); NEUTROPHILS 86.1 % (39-80); PLATELET COUNT 245 K/uL (140-440); RDW 17.3 (10.5-15.0)
[2024-07-05 05:39] LABS: ALBUMIN 2.4 g/dL (3.4-5.0); ALBUMIN/GLOBULIN RATIO 0.59 (1.1-2.4); BILIRUBIN, TOTAL 0.4 mg/dL (0.2-1.0); BUN/CREATININE RATIO 13.04 (6.0-28.6); CALCIUM 8.4 mg/dL (8.5-10.1); CREATININE, SERUM 0.46 mg/dL (0.55-1.02); PROTEIN, TOTAL 6.5 g/dL (6.4-8.2)
--- NOTE | 2024-07-05 05:45 | NUR ---
VITALS, AM MEDS. PT DESATTED TO 85% WHILE SHIFTING IN BED. INCREASED 02 TO 50% AND NOTIFIED RT. GIVEN PRN DILAUDID AND TYLENOL FOR CHEST AND BACK PAIN. NO OTHER NEEDS AT THIS TIME. CALL LIGHT IN REACH
--- NOTE | 2024-07-05 06:46 | NUR ---
NOTIFIED MD OF POTASSIUM 3.0.
--- NOTE | 2024-07-05 07:29 | NUR ---
REPORT FROM TOOL CRIB SUPERVISOR RN.
--- NOTE | 2024-07-05 08:06 | NUR ---
MORNING ASSESSMENT IS COMPLETE. PATIENT IS RESTING IN BED, VAPOTHERN IS 30LPM/60% TO MAINTAIN 90% O2 SATS. IV ABX INFUSING TO LEFT ARM. PATIENT GIVEN 60MG OF IV LASIX. OXYMASK IN ROOM, PLAN TO OVERLAY OXYMASK WITH VAPOTHERM WHEN PATIENT NEEDS TO USE COMMODE. SPOUSE AND CHILD IN ROOM WITH PATIENT. LUNGS ARE CLEAR/DIM, FC NOTED TO RLL. PATIENT DOES REPORT AIRWAY FEELS DRY, OTHERWISE DENIES PAIN. NO OTHER NEEDS AT THIS TIME.
[2024-07-05] MEDS ORDERED: POTASSIUM CHLORIDE 40 MEQ,LIDOCAINE HCL 1% 40 MG in DEXTROSE 5% 250 ML IV ONE (08:15)
--- NOTE | 2024-07-05 08:42 | NUR ---
PATIENT IN BED AT THIS TIME. [employer] DEVELOPER CHARTED HOURLY ROUNDS. CALL LIGHT WITHIN REACH, NO FURTHER NEEDS AT THIS TIME.
[2024-07-05 09:00] LABS: CANCER ANTIGEN 125 62 U/mL (<=38)
[2024-07-05] MEDS ORDERED: POTASSIUM CHLORIDE 10 MEQ TABCR PO ONE (09:00)
[2024-07-05] MEDS ORDERED: FUROSEMIDE 100 MG/10 ML VIAL IV SCH (09:00)
[2024-07-05] MEDS ORDERED: POTASSIUM CHLORIDE 20 MEQ/15 ML CUP PO ONE ×2 (10:00→13:30)
--- NOTE | 2024-07-05 10:00 | NUR ---
PATIENT GIVEN 0.5MG OF IV DILAUDID FOR 7/10 PAIN TO BACK AREA. PATIENT WAS ONLY ABLE TO TAKE 20MEQ PILLS OF POTASSIUM AND THEN CHOKED AND HAD TO COUGH UP A PILL. DR. HAMMOND, LIQUID POTASSIUM ORDERED TO COMPLETE THE REST OF PRESCRIPTION. IV 40 MEQ INFUSING FOR 4 HOURS. PATIENT SITTING UP TO COMMODE AND SHE IS VOIDING CONTINUOUSLY AFTER LASIX. PATIENT HAS A PRODUCTIVE COUGH AT THIS TIME AND IS SPITTING UP PHLEGM.
--- NOTE | 2024-07-05 10:09 | NUR ---
PATIENT IN BED AT THIS TIME. CREMATORY OPERATOR CHARTED VITALS AND I&O'S. CALL LIGHT WITHIN REACH, NO FURTHER NEEDS AT THIS TIME.
--- NOTE | 2024-07-05 10:29 | NUR ---
MRSA NASAL SWAB SENT TO LAB.
--- NOTE | 2024-07-05 10:53 | NUR ---
PATIENT REPORTS PAIN IS 3/10 POST DILAUDID. PATIENT CONTINUES TO BE ON THE COMMODE, VOIDING. PATIENT IS 92% ON VAPOTHERM. PATIENT GIVEN SOME COLD CEREAL, EMERY TO ATTEMPT TO GIVE PO POTASSIUM LATER.
--- NOTE | 2024-07-05 13:10 | NUR ---
PATIENT IN BED AT THIS TIME. MEALS ON WHEELS DRIVER CHARTED HOURLY ROUNDS. CALL LIGHT WITHIN REACH, NO FURTHER NEEDS AT THIS TIME.
--- NOTE | 2024-07-05 13:48 | NUR ---
IV ZOSYN IS INFUSING FOR 4 HOURS. PATIENT REPORTS FEELING BETTER. VAPOTHERM IS STILL AT 30L/50%. NO OTHER NEEDS AT THIS TIME.
--- NOTE | 2024-07-05 13:51 | NUR ---
PATIENT ACCEPTED AT [facility]. JUST WAITING A BED AND TRANSFER. NO NEED FROM AT THIS TIME.
--- NOTE | 2024-07-05 13:52 | NUR ---
UR CONCURRENT/CLINICAL REVIEW: [facility], MEETS INPT FOR PNEUMONIA, VARIANCE GL DAY 2 ENTERED INCREASED OXYGEN NEED, IV DIURETICS, PULMONARY EDEMA, IV DIURETICS [facility] INPT 07/01/2024 @ 2031 ORDER MATCHES REG AUTH PENDING, WILL SEND CLINICALS FOR REVIEW PLAN TO DC TO HOME WHEN MEDICALLY STABLE 07/08/2024
--- NOTE | 2024-07-05 15:34 | NUR ---
PATIENT GIVEN 0.5MG OF IV DILAUDID FOR 4/10 CHEST PAIN, ASSOCIATED WITH CAUGH. NO OTHER NEEDS AT THIS TIME.
[2024-07-05] MEDS ORDERED: HYDROCORTISONE SOD SUCCINATE 100 MG/2 ML VIAL IV ONE (17:00)
--- NOTE | 2024-07-05 17:19 | NUR ---
200MG OF IV STEROIDS GIVEN. PATIENT DENIES OTHER NEEDS.
--- NOTE | 2024-07-05 17:31 | NUR ---
HYDROCORTISONE INFUSION AT 20CC/HOUR.
--- NOTE | 2024-07-05 19:30 | NUR ---
PT ALERT, RESTING IN BED. SUPPORTIVE FAMILY AT BEDSIDE. INFORMED PT THAT TRANSPORT WILL LIKELY BE HERE IN 1 HOUR. PROVIDED WATER AND SNACKS TO PT AND FAMILY. CALL LIGHT IN REACH
--- NOTE | 2024-07-05 21:36 | NUR ---
[facility] ARRIVED TO TRANSFER PT. GIVEN REPORT AND UPDATED RECEIVING HOSPITAL. GIVEN 0.5MG IV DILAUDID PRIOR TO DEPARTURE. ALL BELONGINGS WITH PT OR FAMILY.
[2024-07-06 20:03] LABS: LEGIONELLA PNEUMOPHILA AG,URN Negative (Negative)
--- NOTE | 2024-07-07 12:41 | EKG ---
[facility] [address] [place], [place] [address] Signed Normal sinus rhythm Low voltage QRS T wave abnormality, consider anterior ischemia Abnormal ECG No previous ECGs available Confirmed by Drake Lemons DO ([id number]) on 07/07/2024 12:41:34 PM Electronically Signed By: DRAKE LEMONS DO 07/07/24 1241 PATIENT NAME: MANDO RICHARDS Electrocardiogram DATE OF : [birth year] PHYSICIAN: DRAKE LEMONS DO REPORT #: [id number] REPORT IS CONFIDENTIAL AND NOT TO BE RELEASED WITHOUT AUTHORIZATION
== END 2024-07-05 21:30 | disposition short-term general hospital (02) | DRG 193 ==
LOC: ED 16:22 → MS 21:21
PROVIDERS: Emergency Medicine; Student in an Organized Health Care Education/Training Program; ADMIT Family Medicine; ATTEND Family Medicine
DX: J18.9 Pneumonia, unspecified organism (principal); J96.01 Acute respiratory failure with hypoxia; K29.71 Gastritis, unspecified, with bleeding; I24.89 Other forms of acute ischemic heart disease; C56.1 Malignant neoplasm of right ovary; J98.01 Acute bronchospasm; D63.0 Anemia in neoplastic disease; E03.9 Hypothyroidism, unspecified; B97.89 Other viral agents as the cause of diseases classified elsewhere; R31.9 Hematuria, unspecified; M48.8X4 Other specified spondylopathies, thoracic region
CPT/HCPCS: 36415; 71045; 71260; 74177; 76770; 80053; 81001; 83605; 83735; 84100; 84484; 84703; 85025; 85379; 86304; 87040; 87449; 87502; 93005; 93010; 93306; 94640; 94667; 94668; 94760; 94762; 94799; 99285-25; A9270; J0456; J0696; J1171; J1650; J1720; J1940; J2020; J2405; J2543; J3475; J3480; J3490; J7030; J7060; J7512; Q9967; U0002